=== PATIENT | male | born 1955 | race Caucasian/White ===

== ENCOUNTER → 2018-05-09 14:49 | Outpatient (CLI) | payer MEDICARE, OTHER ==
[2015-06-01 06:53] VITALS: BMI 32.9
[~2018-05-09 14:49] MED LIST: AMBIEN10 MG PO; LIPITOR40 MG PO; LOPRESSOR25 MG PO; PLAVIX75 MG; SYNTHROID100 MCG PO; ULTRAM50 MG PO
== END | disposition home or self-care (01) ==
LOC: D.LAB 14:49
DX: Z01.82 Encounter for allergy testing (principal)